=== PATIENT | female | born 1950 | race American Indian/Alaskan Native ===

== ENCOUNTER 2017-07-07 07:14 | Day surgery (SDC) | payer MEDICARE ==
[2017-07-07] MEDS ORDERED: WATER FOR IRRIG STERILE ONE (07:41)
[2017-07-07] MEDS ORDERED: WATER FOR IRRIG STERILE IR ONE (07:41)
[2017-07-07] MEDS ORDERED: NACL 0.9% 1000 ML 1,000 ML IV SCH (08:00)
--- NOTE | 2017-07-07 08:42 | Anesthesia Day of Surgery ---
Anesthesia Day of Surgery - Day of Surgery Patient Examined: Yes Patient H&P Reviewed: Yes Patient is NPO: Yes Beta Blockers: No (has not taken BP meds since starting dialysis, states "unneeded")
--- NOTE | 2017-07-07 08:44 | Anesthesia Consultation ---
Anesthesia Consult and Med Hx Date of service: 07/07/17 - Airway Anesthetic Teeth Evaluation: Poor (missing top and bottom molars, loose bottom molar), Chipped ROM Head & Neck: Adequate Mental/Hyoid Distance: Adequate Mallampati Class: Class III Intubation Access Assessment: Possibly Difficult - Pulmonary Exam CTA: Yes - Cardiac Exam Cardiac Exam: RRR - Pre-Operative Health Status ASA Pre-Surgery Classification: ASA3 Proposed Anesthetic Plan: MAC - Pulmonary Hx Smoking: Yes (quit 30-40 years ago) Hx Asthma: No COPD: No Hx Pneumonia: Yes Hx Sleep Apnea: No - Cardiovascular System Hx Hypertension: Yes (took herself off meds, states she hasnt needed them since starting dialysis) Hx Coronary Artery Disease: No Hx Heart Attack/AMI: No Hx Angina: No Hx Percutaneous Transluminal Coronary Angioplasty (PTCA): No Hx Pacemaker: No Hx Internal Defibrillator: No Hx Valvular Heart Disease: No Hx Heart Murmur: No Hx Peripheral Vascular Disease: No - Central Nervous System Hx Seizures: No CVA: No Hx Psychiatric Problems: No - Gastrointestinal Hx Ulcer: No - Endocrine Hx Renal Disease: Yes (last dialysed 07/05/17) Hx End Stage Renal Disease: Yes Hx Cirrhosis: No Hx Liver Disease: No Hx Hypothyroidism: No Hx Hyperthyroidism: No - Hematic Hx Anemia: Yes Hx Sickle Cell Disease: No - Other Systems Hx Cancer: Yes (uterine)
[2017-07-07] MEDS ORDERED: DIPRIVAN 10 MG/ML IV ONE ×2 (08:48)
--- NOTE | 2017-07-07 09:53 | Post Operative Note ---
Pre-op diagnosis: anemia, screening colonoscopy Post-op diagnosis: other (gastric fundus nodule, esophagitis, colon polyp, internal hemorrhoids) Findings: EGD: small nodule in gastric fundus (biopsies), esophagitis, hiatal hernia Colonoscopy: < 5 mm polyp in rectum removed with cold biopsy, internal hemorrhoids Procedure: EGD with biopsy Colonoscopy with biopsy Anesthesia: MAC Surgeon: LUCILA MATSON Estimated blood loss: minimal Pathology: list (Jar A - gastric fundus nodule, Jar B - esophagitis, Jar C - rectal polyp) Specimen disposition: to lab Condition: stable Disposition: same day
--- NOTE | 2017-07-07 09:57 | Operative Report ---
Operative Report Operative Report: Date of procedure: 07/07/2017 Procedure: EGD with biopsies Endoscopist: Martín Magana Pre-op diagnosis: anemia Post-op diagnosis: esophagitis, gastric nodule, hiatal hernia Anesthesia: MAC Complications: No immediate complications Estimated blood loss: minimal Procedure: After consent was obtained, the patient was placed in the left lateral decubitus positions. The [employer] upper endoscope was inserted into the patient' s mouth under direct vision, and advanced to the 2nd portion of the duodenum without difficulty. The patient tolerated the procedure well. The views of the mucosa were good. The patient's vital signs were monitored continously throughout the procedure. Findings: There was mildly severe esophagitis in the lower third of the esophagus/GE junction. Biopsies were obtained to rule out Wang's esophagus. There was a moderate sized hiatal hernia. Small (~3 mm) submucosal nodule in the gastric fundus. Biopsies were obtained. Otherwise, the stomach appeared normal. The duodenum appeared normal. Impression: 1. Esophagitis. Biopsied. 2. Nodule in gastric fundus. Biopsied. 3. Hiatal hernia Recommendations: -follow-up pathology -PPI ac bk daily -colonoscopy to follow
--- NOTE | 2017-07-07 09:59 | Post Anesthesia Evaluation ---
- Post Anesthesia Evaluation Patient Participated: Yes Airway Patent: Yes Stable Respiratory Function: Yes Nausea/Vomiting: No Temp > 96.8F: Yes Pain Manageable: Yes Adequeate Hydration: Yes Anesthesia Complications: No Block Receding Appropriately: Not Applicable Patient on Ventilator: No
--- NOTE | 2017-07-07 10:01 | Operative Report ---
Operative Report Operative Report: Date of procedure: 07/07/2017 Procedure: Colonoscopy with biopsy Endoscopist: Martín Magana Pre-op diagnosis: screening colonoscopy, anemia Post-op diagnosis: small rectal polyp, internal hemorrhoids Anesthesia: MAC Complications: No immediate complications Estimated blood loss: minimal Procedure: After consent was obtained, the patient was placed in the left lateral decubitus positions. The fujinon colonoscope was passed into the rectum under direct vision, and advanced to the cecum without difficulty. The patient tolerated the procedure well. The quality of prep was fair. The views of the mucosa were fair. The patient's vital signs were monitored continously throughout the procedure. Findings: There was a small (< 3 mm) sessile polyp in the rectum. The polyp was removed and retrieved with cold biopsy forceps. There was a moderate sized lipoma at the hepatic flexure. Moderate-large internal hemorrhoids were seen on retroflexion view. Impression: 1. Small rectal polyp removed with cold biopsy forceps. 2. Internal hemorrhoids Recommendations: -follow-up pathology -repeat colonoscopy in 5 years -follow-up in GI clinic as previously scheduled
[2017-07-07 10:21] VITALS: BP 123/84
== END 2017-07-07 07:15 | disposition home or self-care (01) ==
LOC: GIO 07:14
PROVIDERS: ATTEND Internal Medicine Gastroenterology
DX: Z12.11 Encounter for screening for malignant neoplasm of colon (principal); D64.9 Anemia, unspecified; K62.1 Rectal polyp; K64.8 Other hemorrhoids; N18.6 End stage renal disease; D17.79 Benign lipomatous neoplasm of other sites; K44.9 Diaphragmatic hernia without obstruction or gangrene; K20.9 Esophagitis, unspecified; K31.89 Other diseases of stomach and duodenum; Z87.891 Personal history of nicotine dependence; Z87.01 Personal history of pneumonia (recurrent); Z85.42 Personal history of malignant neoplasm of other parts of uterus; Z90.710 Acquired absence of both cervix and uterus; Z80.3 Family history of malignant neoplasm of breast
CPT/HCPCS: 43239; 45380; 88305; 88312; 88342; J2704; J7030

== ENCOUNTER 2018-02-18 09:52 | Day surgery (SDC) | payer MEDICARE ==
[2018-02-18] MEDS ORDERED: NACL 0.9% 1000 ML 1,000 ML IV SCH (12:00)
--- NOTE | 2018-02-18 12:00 | Anesthesia Day of Surgery ---
Anesthesia Day of Surgery - Day of Surgery Patient Examined: Yes Patient H&P Reviewed: Yes Patient is NPO: Yes Beta Blockers: No Cardiac Clearance: No Pulmonary Clearance: No
--- NOTE | 2018-02-18 12:01 | Anesthesia Day of Surgery ---
Anesthesia Day of Surgery - Day of Surgery Patient Examined: Yes Patient H&P Reviewed: Yes Patient is NPO: Yes Beta Blockers: No Cardiac Clearance: No Pulmonary Clearance: No
[2018-02-18 12:31] LABS: Basophils % (Auto) 0.6 % (0.0-1.8); Eosinophils # (Auto) 0.1 K/mm3 (0.0-0.4); Eosinophils % (Auto) 2.3 % (0.0-4.3); Hematocrit 30.7 % (30.3-42.9); Hemoglobin 10.4 gm/dl (10.1-14.3); Lymphocytes # (Auto) 1.6 K/mm3 (1.2-5.4); Mean Corpuscular HGB Conc 34 % (30-34); Mean Corpuscular Hemoglobin 35 pg (28-32); Mean Corpuscular Volume 102 fl (79-97); Monocytes # (Auto) 0.4 K/mm3 (0.0-0.8); Monocytes % (Auto) 6.5 % (0.0-7.3); Platelet Count 140 K/mm3 (140-440); Red Blood Count 3.01 M/mm3 (3.65-5.03); Red Cell Distribution Width 13.3 % (13.2-15.2)
[2018-02-18 12:55] LABS: Calcium 9.4 mg/dL (8.4-10.2)
[2018-02-18] MEDS ORDERED: ANCEF/STERILE WATER 2 GM/20 ML IV NR (14:00)
[2018-02-18] MEDS ORDERED: SUBLIMAZE ONE (14:15)
[2018-02-18] MEDS ORDERED: DIPRIVAN 10 MG/ML IV ONE (14:15)
[2018-02-18] MEDS ORDERED: MARCAINE-EPI 0.5%-1:200,000 INFILTRATI ONE ×3 (14:18→15:44)
[2018-02-18] MEDS ORDERED: NACL 0.9% 500 ML 500 ML ONE (14:18)
[2018-02-18] MEDS ORDERED: HEPARIN 10,000 UNITS/10 ML ONE (14:18)
[2018-02-18] MEDS ORDERED: RIFADIN ONE (14:19)
[2018-02-18] MEDS ORDERED: GELFOAM TP ONE ×2 (14:19→16:22)
[2018-02-18] MEDS ORDERED: THROMBIN (BOVINE) TP ONE ×2 (14:19→16:22)
[2018-02-18] MEDS ORDERED: ZOFRAN ONE (15:05)
[2018-02-18] MEDS ORDERED: ePHEDrine SULFATE ONE (15:05)
[2018-02-18] MEDS ORDERED: DECADRON ONE (15:05)
[2018-02-18] MEDS ORDERED: RIFADIN 600 MG in NACL 0.9% 50 ML IR ONE (15:19)
[2018-02-18] MEDS ORDERED: HEPARIN 10,000 UNITS/10 ML 2,000 UNIT in NACL 0.9% 500 ML 500 ML IR ONE (15:19)
[2018-02-18] MEDS ORDERED: NACL 0.9% IR ONE (15:44)
--- NOTE | 2018-02-18 17:15 | Short Stay Summary ---
Short Stay Documentation Date of service: 02/18/18 - History H&P: obtained from office - Allergies and Medications Current Medications: Allergies No Known Allergies Allergy (Verified 02/17/18 16:35) Home Medications Medication Instructions Recorded Confirmed Last Taken Type Calcium Carbonate [Tums] 1,000 mg PO TID #90 tablet 12/01/15 02/17/18 12/12/15 13:00 Rx Carvedilol [Coreg] 25 mg PO BID #60 tablet 12/01/15 02/17/18 12/12/15 13:00 Rx Spironolactone [Aldactone] 25 mg PO BID #60 tablet 12/01/15 02/17/18 12/12/15 13 :00 Rx amLODIPine [Norvasc] 10 mg PO QDAY #30 tablet 12/01/15 02/18/18 02/18/18 Rx Vit B Comp No.3/Folic/C/Biotin 1 each PO QDAY 03/15/16 02/17/18 Unknown History [Kavya-Neelam Rx Tablet] Fosrenol 1 tab PO TID 07/07/17 02/17/18 Unknown History Ergocalciferol(Vitamin D2)(Nf) 200 unit PO QWEEK 02/17/18 02/17/18 Unknown History [Vitamin D (Nf)] Active Medications Cefazolin Sodium (Ancef/Sterile Water 2 Gm/20 Ml) 2 gm IV PREOP NR Stop: 02/18/18 23:59 Hydromorphone HCl (Dilaudid) 0.5 mg IV Q10MIN PRN PRN Reason: Pain , Severe (7-10) Stop: 02/18/18 23:59 Sodium Chloride (Nacl 0.9% 1000 Ml) 1,000 mls @ 42 mls/hr IV DIRECT ALLIE - Brief post op/procedure progress note Date of procedure: 02/18/18 Pre-op diagnosis: failing AVF RUE Post-op diagnosis: same Procedure: Cephalic vein fistula by vein transposition Anesthesia: GETA, local (1/2 % Marcaine w epi) Findings: excellent thrill in fistula at end of case Surgeon: CHAI OJEDA Estimated blood loss: 50-100ml Condition: stable - Hospital course Hospital course: benign Short Stay Discharge Plan Activity: advance as tolerated Diet: advance as tolerated Wound: per your surgeon's advice Follow up with: HCAI OJEDA MD [Staff Physician] - 7 Days Prescriptions: HYDROcodone/APAP 5-325 [[place] 5/325] 1 each PO Q6HR PRN #30 tablet PRN Reason: Pain
--- NOTE | 2018-02-18 17:21 | Operative Report ---
Operative Report Operative Report: Date of procedure: 02/18/2018 Pre-operative diagnosis: Failing arteriovenous fistula right upper extremity Post-operative diagnosis: Same Procedure name(s): Revision of right upper extremity cephalic vein fistula by cephalic vein transposition Surgeon: Andrew Flanagan MD Epic Cadence Analyst: None Anesthesia: Gen. with local supplementation using half percent Marcaine with epinephrine EBL: 50-100 mL Operative indication: Patient is a 68-year-old woman with right upper extremity brachial artery to cephalic vein fistula in the upper arm. Recent intervention is shown that the cephalic arch is completely occluded and cannot be reopened. She presents now for revision of her cephalic vein fistula. Findings: Excellent thrill at the arteriovenous fistula the end of the case. Procedure: The patient wastable supine position and given appropriate anesthesia. The area over the right arm was prepped with ChloraPrep solution and draped the usual sterile fashion. Real-time ultrasound guidance was used to helen the location of the cephalic vein in the upper arm including the portion of the vein in the deltopectoral groove. The axillary vein was also identified with ultrasound and marked. A linear incision was made along the cephalic vein in the upper third of the humerus extending into the lateral portion of the chest. The cephalic vein fistula was identified and dissected free of its surrounding branches and other tissue. The fistula was of good quality. A second incision was made over the axilla and dissection was carried out to identify the axillary vein. Vessel loops were used proximally and distally to surround the axillary vein. A subcutaneous tunnel was made between the 2 incisions. The patient was given 2000 units of intravenous heparin. 3 minutes were allowed to pass. The cephalic vein was then harvested proximally. It was tunneled through the subcutaneous tunnel toward the axillary vein. The axillary vein was occluded and a venotomy was made. The end of the cephalic vein was anastomosed to the side of the axillary vein using running 6-0 Prolene. All vessels were flushed and vented remove any air or debris. The anastomosis was completed and inflow was started into the cephalic vein fistula with the development of an immediate and excellent thrill over the entire body of the fistula. Meticulous hemostasis was obtained. Closure was done with 2 layers of 3-0 Vicryl and the cephalic vein harvest site. That incision was closed with 4-0 Monocryl. The incision had been infiltrated with half percent Marcaine with epinephrine. The axillary incision was closed with one layer of 3-0 Vicryl and 4-0 Monocryl. This incision was also infiltrated with half percent Marcaine with epinephrine. Sponge needle and instrument counts were reported as correct. The patient tolerated the procedure well and was taken to the recovery room in stable condition. There was an excellent thrill in the arteriovenous fistula. The arm was moved into a variety of positions without any change in the quality of the thrill in the fistula.
[2018-02-18] MEDS: DILAUDID IV PRN ×2 (17:25→17:38)
[2018-02-18] MEDS ORDERED: NORCO 5/325 PO PRN (17:47)
[2018-02-18] MEDS ORDERED: TORADOL IV PRN (18:41)
--- NOTE | 2018-02-18 18:43 | Post Anesthesia Evaluation ---
- Post Anesthesia Evaluation Patient Participated: Yes Airway Patent: Yes Stable Respiratory Function: Yes Nausea/Vomiting: Yes Temp > 96.8F: Yes Pain Manageable: Yes Adequeate Hydration: Yes Anesthesia Complications: No Block Receding Appropriately: Not Applicable Patient on Ventilator: No
[2018-02-18 21:05] VITALS: BP 131/58
== END 2018-02-18 19:15 | disposition home or self-care (01) ==
LOC: OR 09:52
PROVIDERS: ATTEND Surgery Vascular Surgery
DX: T82.868A Thrombosis due to vascular prosthetic devices, implants and grafts, initial encounter (principal); I12.0 Hypertensive chronic kidney disease with stage 5 chronic kidney disease or end stage renal disease; N18.6 End stage renal disease; Y83.2 Surgical operation with anastomosis, bypass or graft as the cause of abnormal reaction of the patient, or of later complication, without mention of misadventure at the time of the procedure; Z87.891 Personal history of nicotine dependence
CPT/HCPCS: 36415; 36832; 80048; 85025; A4649; J0690; J1100; J1170; J1644; J2405; J2704; J3010; J3490; J7030; J7040

== ENCOUNTER 2018-05-29 07:51 | Day surgery (SDC) | payer MEDICARE ==
[~2018-05-29 07:51] MED LIST: ANCEF/STERILE WATER 2 GM/20 ML 2 GM/20 ML SYRINGE IV NR
[2018-05-29] MEDS ORDERED: NACL 0.9% 500 ML 500 ML IV SCH (10:00)
[2018-05-29] MEDS ORDERED: HEPARIN/NS 5000 UNIT/500ML(CATH LAB) 500 ML IR ONE ×2 (12:19→12:21)
[2018-05-29] MEDS ORDERED: XYLOCAINE 2% INFILTRATI ONE (12:20)
[2018-05-29] MEDS ORDERED: HEPARIN 10,000 UNITS/10 ML ONE (12:20)
[2018-05-29] MEDS ORDERED: NACL 0.9% 500 ML 500 ML ONE (12:20)
[2018-05-29] MEDS ORDERED: ANCEF/STERILE WATER 2 GM/20 ML 2 GM/20 ML SYRINGE IV ONE (12:51)
[2018-05-29] MEDS: VERSED ONE ×2 (12:53→12:59)
[2018-05-29] MEDS: SUBLIMAZE ONE ×2 (12:53→12:59)
[2018-05-29] MEDS ORDERED: VERSED ONE (13:04)
[2018-05-29] MEDS ORDERED: SUBLIMAZE ONE (13:05)
--- NOTE | 2018-05-29 13:42 | Short Stay Summary ---
Short Stay Documentation Date of service: 05/29/18 Narrative H&P: AVF malfunction who presents for intervention - History Principal diagnosis: AVF malfunction Past Medical History: dialysis, ESRD Past Surgical History: Other (multiple AVF surgeries) - Allergies and Medications Current Medications: Allergies No Known Allergies Allergy (Verified 02/17/18 16:35) Home Medications Medication Instructions Recorded Confirmed Last Taken Type Vit B Comp No.3/Folic/C/Biotin 1 each PO QDAY 03/15/16 05/29/18 05/28/18 History [Kavya-Neelam Rx Tablet] Ergocalciferol(Vitamin D2)(Nf) 200 unit PO DAILY 02/17/18 05/29/18 05/28/18 History [Vitamin D (Nf)] Active Medications Cefazolin Sodium (Ancef/Sterile Water 2 Gm/20 Ml) 2 gm in 20 mls @ 80 mls/hr IV PREOP NR; Protocol Stop: 05/29/18 23:59 Last Admin: 05/29/18 12:50 Dose: 20 mls Sodium Chloride (Nacl 0.9% 500 Ml) 500 mls @ 50 mls/hr IV DIRECT ALLIE Last Admin: 05/29/18 12:45 Dose: 200 mls - Physical exam General appearance: no acute distress Lungs: Normal air movement Gastrointestinal: normal Extremities: normal temperature, normal color - Brief post op/procedure progress note Date of procedure: 05/29/18 Pre-op diagnosis: AVF malfunction Post-op diagnosis: same Procedure: Fistulogram with angioplasty Anesthesia: local (w/ conscious sedation) Surgeon: JOSE MANCIA Estimated blood loss: minimal Condition: stable - Hospital course Hospital course: Ready for discharge. - Disposition Condition at discharge: Stable Disposition: [id number] HOME UNDER HOME HLTH - Discharge Diagnoses (1) Malfunction of arteriovenous dialysis fistula Status: Acute (2) ESRD (end stage renal disease) on dialysis Status: Acute Short Stay Discharge Plan Activity: advance as tolerated Weight Bearing Status: Weight Bear as Tolerated Diet: renal Wound: keep clean and dry Follow up with: PRIMARY CARE, [Primary Care Provider] - 7 Days
--- NOTE | 2018-05-29 13:43 | Operative Report ---
Operative Report Operative Report: EXAM: 1. Ultrasound-guided access of the right arm brachial cephalic AV fistula ( status post turndown procedure) towards the venous outflow 2. Fistulogram 3. Angioplasty of the midportion of the cephalic vein with a 12 mm x 4 cm angioplasty balloon 4. Angioplasty of the axillary vein and peripheral portion of the cephalic vein was a 10 mm x 4 cm angioplasty balloon across the entire length of the fistula DATE: 05/29/18 DRAFTER MARINE: JOSE MANCIA MD INDICATION: End-stage renal disease with AV fistula malfunction MEDICATIONS: Please see nursing report for full details. DEVICES: 12 mm x 40 mm angioplasty balloon 10 mm x 40 mm angioplasty balloon PROCEDURE: The risks, benefits, and alternatives of the procedure were discussed and written informed consent was obtained. The patient was transported in stable condition to the angiography suite. The patient's right arm AV fistula was assessed by ultrasound and was patent. The patient was prepped and draped in a sterile fashion. Under ultrasound guidance, the right arm AV fistula was accessed with a 21- gauge micropuncture needle. The area was anesthetized prior to access. 0.018 inch wire was advanced through the micropuncture needle into the fistula and then the needle was exchanged for a 5 Australian transitional dilator. The inner dilator and wire were removed and a 0.035 inch wire was advanced through the venous outflow. The transitional dilator was exchanged for a 7 Australian short sheath. Fistulogram was performed of the venous outflow and central veins. Reflux into the arterial anastomosis was performed. Subtraction angiography demonstrated mid cephalic vein 50% narrowing with 30-40 % multifocal narrowing of the central portion of the cephalic vein and at the anastomosis at the turndown procedure site. The brachiocephalic vein and SVC were patent. The inflow was patent. 12 mm x 40 mm angioplasty balloon is used to perform angioplasty at the midportion of the cephalic vein with a 10 mm x 40 mm angioplasty balloon used to perform angioplasty of the central portion of the cephalic vein extending into the axillary vein (status post turndown procedure). There is tortuosity of the cephalic vein. The wire was removed and the site was closed with a 3-0 Vicryl suture. The sheath was then removed. Hemostasis was achieved with slight manual compression. The patient was transported from the angiography suite to the floor in stable condition. IMPRESSION: Successful fistulogram and peripheral dialysis access angioplasty as descibed above with a 12 mm x 40 mm angioplasty balloon and 10 mm x 40 mm angioplasty balloon angioplasty balloon.
[2018-05-29 14:36] VITALS: BP 131/72
== END 2018-05-29 15:30 | disposition home health service (06) ==
LOC: CATHLABREC 07:51
PROVIDERS: ATTEND Radiology Diagnostic Radiology
DX: T82.858A Stenosis of other vascular prosthetic devices, implants and grafts, initial encounter (principal); N18.6 End stage renal disease; G43.909 Migraine, unspecified, not intractable, without status migrainosus; K21.9 Gastro-esophageal reflux disease without esophagitis; Z79.899 Other long term (current) drug therapy; Z72.89 Other problems related to lifestyle; Z90.710 Acquired absence of both cervix and uterus; Z87.891 Personal history of nicotine dependence; Z98.890 Other specified postprocedural states; Z80.9 Family history of malignant neoplasm, unspecified; Y83.2 Surgical operation with anastomosis, bypass or graft as the cause of abnormal reaction of the patient, or of later complication, without mention of misadventure at the time of the procedure
CPT/HCPCS: 36415; 36902; 84132; 99156; 99157; C1725; C1751; C1769; C1894; J0690; J1644; J2250; J3010; J7040; Q9967